=== PATIENT | female | born 1995 | race Two or more races ===

== ENCOUNTER 2021-07-13 18:38 | Emergency (ER) | payer MEDICAID ==
[~2021-07-13] VITALS: Ht 154.9 cm; Wt 63.5 kg
[~2021-07-13 18:38] MED LIST: PREN-96 PO
[2021-07-14] VITALS: BP 138/82
[2021-07-14] MEDS ORDERED: BACITRACIN TOP OINT 1 UD PKG TOP ONE (00:30)
[2021-07-14] MEDS ORDERED: NEOMYCIN-BACITRACIN-POLYM UNITDOSE PKG TOP OINT TOP ONE (00:30)
== END 2021-07-14 00:37 | disposition home or self-care (01) ==
LOC: ER 18:39
DX: S61.306A Unspecified open wound of right little finger with damage to nail, initial encounter (principal); L03.011 Cellulitis of right finger; Z79.899 Other long term (current) drug therapy; X58.XXXA Exposure to other specified factors, initial encounter; Y93.89 Activity, other specified; Y92.89 Other specified places as the place of occurrence of the external cause; Y99.8 Other external cause status
CPT/HCPCS: 11730

== ENCOUNTER 2021-09-30 15:53 | Emergency (ER) | payer MEDICAID ==
[~2021-09-30] VITALS: Ht 154.9 cm; Wt 61.2 kg
[2021-09-30] MEDS ORDERED: ACETAMINOPHEN 325 MG TAB PO ONE ×2 (16:07→16:15)
[2021-09-30 16:42] VITALS: BP 120/76
[2021-09-30] MEDS ORDERED: cefTRIAXone SOD 1,000 MG VL IM ONE (18:00)
[2021-09-30] MEDS ORDERED: methylPREDNISolone SOD SUCC 125 MG/2 ML VL IM ONE (18:00)
== END 2021-09-30 18:11 | disposition home or self-care (01) ==
LOC: ER 15:53
DX: J02.9 Acute pharyngitis, unspecified (principal); M79.10 Myalgia, unspecified site; R51.9 Headache, unspecified; R50.9 Fever, unspecified; Z79.899 Other long term (current) drug therapy; Z91.040 Latex allergy status; Z20.822 Contact with and (suspected) exposure to COVID-19
CPT/HCPCS: 36415; 71045; 87426; 96372; 99284; J0696; J2930

== ENCOUNTER → 2021-12-23 | Outpatient (CLI) | payer MEDICAID | END | disposition home or self-care (01) | LOC: LAB 09:21 | PROVIDERS: ATTEND Obstetrics & Gynecology | DX: Z34.80 Encounter for supervision of other normal pregnancy, unspecified trimester (principal) | CPT/HCPCS: 36415; 84144; 84702 ==

== ENCOUNTER 2021-12-25 08:28 | Day surgery (SDC) | payer MEDICAID ==
[~2021-12-25] VITALS: Ht 154.9 cm; Wt 69.9 kg
[2021-12-25 09:08] LABS: Basophils # (auto) 0 10 ^3/uL (0-0.2); Eosinophils # (auto) 0.1 10 ^3/uL (0-0.8); Eosinophils % (auto) 1.5 % (0.0-7.0); Lymphocytes # (auto) 2.2 10 ^3/uL (0.4-5.4); Monocytes # (auto) 0.5 10 ^3/uL (0-1.3); Neutrophils # (auto) 2.8 10 ^3/uL (1.6-8.6); Nucleated Red Blood Cells % 0.1 %
[2021-12-25 09:10] LABS: Basophils % (auto) 0.4 % (0.0-2.0); Hematocrit 38.8 % (36.0-46.0); Hemoglobin 12.6 g/dL (12.2-16.2); Lymphocytes % (auto) 39.5 % (10.0-50.0); Mean Corpuscular Hemoglobin 25.8 pg (28.0-32.0); Mean Corpuscular Hgb Conc. 32.5 g/dL (32.0-36.0); Mean Corpuscular Volume 79.6 fL (80.0-100.0); Neutrophils % (auto) 49.6 % (37.0-80.0); Red Blood Cells 4.88 10^6/uL (4.0-5.20); Red Cell Distribution Width 14.9 % (11.8-14.3); White Blood Cell 5.6 10^3/uL (4.4-10.8)
[2021-12-25 09:16] LABS: BUN/Creatinine Ratio 8.2; Calcium 8.9 mg/dL (8.5-10.1); Potassium 3.8 mmol/L (3.5-5.1)
[2021-12-25 09:22] LABS: INR 1.02 (0.9-1.15); Partial Thromboplastin Time 26.5 sec (23.6-33.0)
[2021-12-25 10:25] LABS: Urine Blood 3+ /uL (Negative); Urine Mucus FEW (None Seen); Urine Specific Gravity 1.024 (1.001-1.035); Urine WBC 60 /hpf (0 - 5)
[2021-12-25 10:27] LABS: Urine Bacteria FEW /hpf (None Seen)
[2021-12-25] MEDS ORDERED: SODIUM CHLORIDE 0.9% 1,000 ML IV ONE (11:00)
[2021-12-25] MEDS ORDERED: cefTRIAXone 1GM/50ML D5W 50 ML IV ONE ×2 (11:29→11:30)
[2021-12-25] MEDS ORDERED: fentaNYL CITRATE 100 MCG/2 ML VL ONE (12:12)
[2021-12-25] MEDS ORDERED: MEPERIDINE HCL (25 MG/ML) 1ML VIAL ONE (12:12)
[2021-12-25] MEDS ORDERED: MIDAZOLAM HCL 2MG/2ML 2ml VIAL (1mg/ml) ONE (12:12)
[2021-12-25] MEDS ORDERED: PROPOFOL 10 MG/ML 20 ML IV ONE (12:27)
[2021-12-25] MEDS ORDERED: DexAMETHasone SOD PHOS 10MG/1ML VIAL INJ ONE (12:27)
[2021-12-25] MEDS ORDERED: ONDA-144 PO (13:08)
[2021-12-25] MEDS ORDERED: IBUP800T27 PO (13:08)
[2021-12-25] MEDS ORDERED: RHO (D) IMMUNE GLOBULIN 300 MCG INJ IM PRN (13:15)
[2021-12-25] MEDS ORDERED: HYDROmorphone HCL 2 MG/ML VL IV PRN (13:30)
[2021-12-25] MEDS ORDERED: ONDANSETRON HCL 4 MG/2 ML VIAL IV PRN (13:30)
[2021-12-25] MEDS ORDERED: MORPHINE SULFATE 4 MG/ML SYR/VIAL IV PRN (13:30)
[2021-12-25] MEDS ORDERED: LABETALOL HCL 5 MG/ML 4ML SYRINGE IV PRN (13:30)
[2021-12-25] MEDS ORDERED: MIDAZOLAM HCL 2MG/2ML 2ml VIAL (1mg/ml) IV PRN (13:30)
[2021-12-25] MEDS ORDERED: ePHEDrine SULFATE 50 MG/ML AMP IV PRN (13:30)
[2021-12-25 14:45] VITALS: BP 105/63
== END 2021-12-25 15:19 | disposition home or self-care (01) ==
LOC: ER 08:28 → SUR 12:16 → OR 1 12:16 → SUR 15:19
PROVIDERS: ATTEND Obstetrics & Gynecology
DX: O03.4 Incomplete spontaneous abortion without complication (principal); O01.9 Hydatidiform mole, unspecified; Z20.822 Contact with and (suspected) exposure to COVID-19
CPT/HCPCS: 36415; 59812; 76801; 76817; 80048; 81001; 84702; 85025; 85610; 85730; 86850; 86900; 86901; 87426; J0696; J1100; J2175; J2250; J2704; J3010

== ENCOUNTER 2022-01-04 23:21 | Emergency (ER) | payer MEDICAID ==
[~2022-01-04] VITALS: Ht 154.9 cm; Wt 69.9 kg
[~2022-01-04 23:21] MED LIST changes: +IBUP800T27 PO; +ONDA-144 PO
[2022-01-04 23:22] VITALS: BP 192/109
[2022-01-05] MEDS ORDERED: SULF800T7 PO (11:11)
[2022-01-05] MEDS ORDERED: IBUP800T27 PO (11:11)
[2022-01-05] MEDS ORDERED: CYCL-837 PO (11:11)
== END 2022-01-05 01:22 | disposition left against medical advice (07) ==
LOC: ER 23:21
DX: M54.2 Cervicalgia (principal); M54.9 Dorsalgia, unspecified; Z53.21 Procedure and treatment not carried out due to patient leaving prior to being seen by health care provider

== ENCOUNTER 2022-01-05 09:09 | Emergency (ER) | payer MEDICAID ==
[~2022-01-05] VITALS: Ht 154.9 cm; Wt 69.9 kg
[2022-01-05 09:33] VITALS: BP 117/79
[2022-01-05] MEDS ORDERED: HYDROcodone-ACET 5/325MG TAB PO ONE (10:00)
[2022-01-05] MEDS ORDERED: ONDANSETRON ODT 4 MG TAB PO ONE (10:00)
[2022-01-05] MEDS ORDERED: CYCL-837 PO (11:11)
[2022-01-05] MEDS ORDERED: IBUP800T27 PO (11:11)
[2022-01-05] MEDS ORDERED: SULF800T7 PO (11:11)
== END 2022-01-05 11:37 | disposition home or self-care (01) ==
LOC: ER 09:09
DX: S39.012A Strain of muscle, fascia and tendon of lower back, initial encounter (principal); S16.1XXA Strain of muscle, fascia and tendon at neck level, initial encounter; N39.0 Urinary tract infection, site not specified; Z79.1 Long term (current) use of non-steroidal anti-inflammatories (NSAID); Z79.899 Other long term (current) drug therapy; Z91.040 Latex allergy status; X50.1XXA Overexertion from prolonged static or awkward postures, initial encounter; Y93.89 Activity, other specified; Y92.89 Other specified places as the place of occurrence of the external cause; Y99.8 Other external cause status
CPT/HCPCS: 72100; 72125; 99284; Q0162

== ENCOUNTER 2023-01-14 17:46 | Emergency (ER) | payer MEDICAID ==
[~2023-01-14] VITALS: Ht 154.9 cm; Wt 70.4 kg
[~2023-01-14 17:46] MED LIST changes: +CYCL-837 PO; +SULF800T7 PO
[2023-01-14 19:03] LABS: Basophils # (auto) 0 10 ^3/uL (0-0.2); Basophils % (auto) 0.4 % (0.0-2.0); Eosinophils # (auto) 0.1 10 ^3/uL (0-0.8); Eosinophils % (auto) 1.2 % (0.0-7.0); Hematocrit 34.1 % (36.0-46.0); Hemoglobin 10.8 g/dL (12.2-16.2); Lymphocytes # (auto) 2.7 10 ^3/uL (0.4-5.4); Lymphocytes % (auto) 34.8 % (10.0-50.0); Mean Corpuscular Hemoglobin 22.1 pg (28.0-32.0); Mean Corpuscular Hgb Conc. 31.7 g/dL (32.0-36.0); Mean Corpuscular Volume 69.6 fL (80.0-100.0); Monocytes # (auto) 0.6 10 ^3/uL (0-1.3); Monocytes % (auto) 7.7 % (0.0-12.0); Neutrophils # (auto) 4.3 10 ^3/uL (1.6-8.6); Neutrophils % (auto) 55.9 % (37.0-80.0); Nucleated Red Blood Cells % 0.1 %; Red Cell Distribution Width 16.9 % (11.8-14.3); White Blood Cell 7.8 10^3/uL (4.4-10.8)
[2023-01-14 19:05] LABS: Urine Bacteria FEW /hpf (None Seen); Urine Blood Negative /uL (Negative); Urine Specific Gravity 1.002 (1.001-1.035); Urine WBC 5 /hpf (0 - 5)
[2023-01-14 19:19] LABS: Albumin 4.1 g/dL (3.4-5.0); Potassium 3.7 mmol/L (3.5-5.1)
[2023-01-14 19:23] LABS: BUN/Creatinine Ratio 9.9; Bilirubin, Total 0.3 mg/dL (0.2-1.0); Total Protein 8.3 g/dL (6.4-8.2)
[2023-01-14 20:03] VITALS: BP 113/60
[2023-01-14] MEDS ORDERED: NITR-87 PO (20:19)
== END 2023-01-14 21:08 | disposition home or self-care (01) ==
LOC: ER 17:46
DX: R51.9 Headache, unspecified (principal); N39.0 Urinary tract infection, site not specified; Z91.040 Latex allergy status; Z79.899 Other long term (current) drug therapy
CPT/HCPCS: 36415; 80053; 81001; 81025; 85025

== ENCOUNTER 2023-10-07 11:27 | Emergency (ER) | payer MEDICAID ==
[~2023-10-07] VITALS: Ht 154.9 cm; Wt 70.0 kg
[~2023-10-07 11:27] MED LIST changes: +IBUP-1456 PO; -IBUP800T27 PO; +NITR-87 PO; +SULF800T23 PO; -SULF800T7 PO
[2023-10-07 12:00] VITALS: BP 109/67; PULSE 73; RESP 16; TEMP 97.8; O2SAT 99
== END 2023-10-07 13:46 | disposition home or self-care (01) ==
LOC: ER 11:27
DX: S40.021A Contusion of right upper arm, initial encounter (principal); Z87.440 Personal history of urinary (tract) infections; Z91.040 Latex allergy status; W18.09XA Striking against other object with subsequent fall, initial encounter; Y93.89 Activity, other specified; Y92.89 Other specified places as the place of occurrence of the external cause; Y99.8 Other external cause status
CPT/HCPCS: 73060

== ENCOUNTER 2024-12-09 17:05 | Emergency (ER) | payer MEDICAID ==
[~2024-12-09] VITALS: Ht 154.9 cm; Wt 68.9 kg
[2024-12-09 17:41] VITALS: PULSE 68; RESP 18; O2SAT 99
[2024-12-09] MEDS: KETOROLAC TROMETH 60MG/2ML VIAL IM ONE (17:43)
[2024-12-09] MEDS: HYDROcodone-ACET 5/325MG TAB PO ONE (17:43)
--- NOTE | 2024-12-09 18:04 | ED.PDOC ---
[place]. trauma (HPI) HPI Comments 29 y.o female presents to the ED for a chief complaint of back pain s/p falling backwards on snow. Patient reports history of 2 herniated disks, states tenderness she feels now is new after falling. Patient denies any LOC, head injury, neck, head, pain, nausea, vomiting. Patient is able to ambulate. Chief Complaint: Fall Injury Time Seen by MD: 17:14 Primary Care Provider: anneliese Lopez notes: Nurses Notes, Medications, Allergies Allergies: Coded Allergies: Latex (Verified Allergy, Unknown, 08/17/16) Home Meds Active Scripts Nitrofurantoin Monohydrate Mac (Macrobid) 100 Mg Cap, 100 MG PO BID for 5 Days, #10 CAP 0 Refills Prov:MALIK HOLDER 01/14/23 Sulfamethoxazole W/Trimethopri (Trimethoprim/Sulfamethoxa) 1 Tab Tab, 1 TAB PO BID for 7 Days, #14 TAB 0 Refills Prov:SHARRI LAZCANO 01/05/22 Ibuprofen (Ibuprofen) 800 Mg Tab, 1 TAB PO TID PRN, #30 TAB 0 Refills Prov:SHARRI LAZCANO 01/05/22 Cyclobenzaprine Hcl (Cyclobenzaprine Hcl) 5 Mg Tab, 1 TAB PO QPM PRN, #15 TAB 0 Refills Prov:SHARRI LAZCANO 01/05/22 Ondansetron (Zofran) 4 Mg Tab, 4 MG PO Q4HPRN PRN, #30 TAB Prov:WILD KRAMER 12/25/21 Ibuprofen (Ibuprofen) 800 Mg Tab, 800 MG PO TID PRN for 15 Days, #40 TAB Prov:WILD KRAMER 12/25/21 Reported Medications Vit W/ Ferrous Fumara ( One Daily) Daily Tab, 1 TAB PO DAILY, #90 TAB 3 Refills 01/22/17 Information Source: Patient Mode of Arrival: Ambulatory Severity: Moderate Timing: Hours Duration: Since onset Prehospital treatment: None Location: Back Location of laceration: None Mechanism: Fall Associated signs and symtoms: Other Past Medical History PAST MEDICAL HISTORY: UTI'S Past Medical History (Other): herinated disk x2 Surgical History: Denies all surgeries PAYROLL ASSISTANT History: No Pertinent PAYROLL ASSISTANT History Family History Family History: Reviewed,noncontributory to illness, Family hx of HTN Social History Smoker: Non-Smoker Alcohol: Denies ETOH Use Drugs: Denies Drug Use Lives In: Home Constitutional: denies: chills, diaphoresis, fatigue, fever, malaise, sweats, weakness, others EENTM: denies: blurred vision, double vision, ear bleeding, ear discharge, ear drainage, ear pain, ear ringing, eye pain, eye redness, hearing loss, mouth pain, mouth swelling, nasal discharge, nose bleeding, nose congestion, nose pain, photophobia, tearing, throat pain, throat swelling, voice changes, others Respiratory: denies: cough, hemoptysis, orthopnea, SOB at rest, shortness of breath, SOB with excertion, stridor, wheezing, others Cardiovascular: denies: chest pain, dizzy spells, diaphoresis, Dyspnea on exertion, edema, irregular heart beat, left arm pain, lightheadedness, palpitations, PND, syncope, others Gastrointestinal: denies: abdomen distended, abdominal pain, blood streaked bowels, constipated, diarrhea, dysphagia, difficulty swallowing, hematemesis, melena, nausea, poor appetite, poor fluid intake, rectal bleeding, rectal pain, vomiting, others Genitourinary: denies: abnormal vagina bleeding, burning, dyspareunia, dysuria, flank pain, frequency, hematuria, incontinence, pain, , vagina discharge, urgency, others Neurological: denies: dizziness, fainting, headache, left sided numbness, left sided weakness, numbness, paresthesia, pre-existing deficit, right sided numbness, right sided weakness, seizure, speech problems, tingling, tremors, weakness, others Musculoskeletal: reports: back pain; denies: gout, joint pain, joint swelling, muscle pain, muscle stiffness, neck pain, others Integumetry: denies: bruises, change in color, change in hair/nails, dryness, laceration, lesions, lumps, rash, wounds, others Allergic/Immunocompromised: denies: Difficulty Healing, Frequent Infections, Hives, Itching, others Hematologic/Lymphatic: denies: anemia, blood clots, easy bleeding, easy bruising, swollen glands, others Endocrine: denies: excessive hunger, excessive sweating, excessive thirst, excessive urination, flushing, intolerance to cold, intolerance to heat, unexplained weight gain, unexplained weight loss, others Psychiatric: denies: anxiety, bipolar disorder, depression, hopeless, panic disorder, schizophrenia, sleepless, suicidal, others All Other Systems: Reviewed and Negative Physical Exam General Appearance: Moderate Distress ([id number] distress due to low back pain concerns.), Normal HEENT: Normal ENT Inspection, Pharynx Normal, TMs Normal Neck: Full Range of Motion, Non-Tender, Normal, Normal Inspection Respiratory: Chest Non-Tender, Lungs Clear, No Accessory Muscle Use, No Respiratory Distress, Normal Breath Sounds Cardiovascular: No Edema, No JVD, No Murmur, No Gallop, Normal Peripheral Pulses, Regular Rate/Rhythm Breast Exam: Deferred Gastrointestinal: No Organomegaly, Non Tender, No Pulsatile Mass, Normal Bowel Sounds, Soft Genitalia: Deferred Pelvic: Deferred Rectal: Deferred Extremities: No calf tenderness, Normal capillary refill, Normal inspection, Normal range of motion, Non-tender, No pedal edema Musculoskeletal : Location: Bilateral Extremity Location: Back (Diffuse bilateral lumbar tenderness to palpation. No step-offs noted. No crepitus appreciated. No edema or ecchymosis. Patient denies any saddle paresthesia. Bilateral distal neurovascularly intact.) Apperance: Tenderness Neurologic: Alert, workshop manager II-XII nml as Tested, No Motor Deficits, Normal Affect, Normal Mood, No Sensory Deficits Cerebellar Function: Normal Reflexes: Normal Skin: Dry, Normal Color, Warm Lymphatic: No Adenopathy Was a procedure done? Was a procedure done?: No Differential Diagnosis Multiple Trauma: Fractures, Contusion X-Ray, Labs, Meds, VS Vital Signs Date Time Temp Pulse Resp B/P (MAP) Pulse Ox O2 Delivery O2 Flow Rate FiO2 12/09/24 17:41 68 18 99 Room Air* 0 21 12/09/24 17:40 97.5 99 18 109/44 (65) 99 97.5 12/09/24 17:13 98.0 83 20 109/55 (73) 98 Current Medications Medications (Trade) Dose Ordered Sig/Lisa Route Start Time Stop Time Status Last Admin Ketorolac Tromethamine (Toradol Injection) 30 mg ONCE ONCE IM 12/09/24 17:30 12/09/24 17:31 DC 12/09/24 17:43 Acetaminophen/ Hydrocodone Bitart ([place] 5/325MG Tab) 1 tab ONCE ONCE PO 12/09/24 17:30 12/09/24 17:31 DC 12/09/24 17:43 X-Ray, Labs, Meds, VS Comment All studies performed the ED were evaluated by me personally. Imaging studies were unremarkable for any acute fractures. Additionally, I will advise the patient that there was no sign of degenerative disc disease or disc concerns. Patient sustained a low back contusion. Time of 1ST Reevaluation: 18:43 Reevaluation 1ST: Improved Consultation: PCP Patient Education/Counseling: Diagnosis, Treatment, Prognosis Family Education/Counseling: Diagnosis, Treatment, No Family Present Departure 1 Departure Time of Disposition: 18:44 Impression: Primary Impression: Contusion of lower back Disposition: 01 HOME / SELF CARE / HOMELESS Condition: Stable Additional Instructions: Tylenol and or Motrin as needed for symptomatic pain relief as well as ice therapy. Additionally, imaging studies were unremarkable for any degenerative disc disease or disc related concerns. e-Prescriptions Hydrocodone-Acetaminophen (Hydrocodone Bitartrate/AC 5-325 mg) 1 Tab Tab 1 TAB PO Q6HP PRN, #15 TAB Prov: AGGIE COFFEY PAC 12/09/24 Ibuprofen Micronized (Ibuprofen) 800 Mg Tab 800 MG PO Q8HP PRN, #20 TAB Prov: AGGIE COFFEY PAC 12/09/24 Discharged With: Self, Friend Critical Care Note Critical Care Time?: No Stability Stability form required: No I personally scribed for AGGIE COFFEY PAC ([email or web address]) on 12/09/24 at 18:04. Electronically submitted by Vikki Alcocer ([facility]). AGGIE COFFEY PAC Dec 09, 2024 18:04
--- NOTE | 2024-12-09 18:30 | DVH ---
CLINICAL INDICATION: Fall/trauma TECHNIQUE: 3 radiographic views of the lumbar spine were obtained. Comparison: LUMBAR SPINE LTD on DOS: 01/05/22 FINDINGS/IMPRESSION: There is 5 [id number] lumbar-type vertebrae. Normal alignment of the lumbar spine. Vertebral b jacy heights are maintained. No evidence of acute traumatic fractures or spondylolisthesis. Moderate to large amount of fecal material within the colon.
[2024-12-09] MEDS ORDERED: IBUP-1455 PO (18:47)
[2024-12-09] MEDS ORDERED: HYDR-4902 PO (18:47)
[2024-12-09 19:33] VITALS: BP 100/62; PULSE 70; RESP 18; TEMP 97.8; O2SAT 97
== END 2024-12-09 19:34 | disposition home or self-care (01) ==
LOC: ER 17:05
DX: S30.0XXA Contusion of lower back and pelvis, initial encounter (principal); Z91.040 Latex allergy status; Z87.440 Personal history of urinary (tract) infections; V00.321A Fall from snow-skis, initial encounter; Y93.89 Activity, other specified; Y92.89 Other specified places as the place of occurrence of the external cause; Y99.8 Other external cause status
CPT/HCPCS: 72100; 96372; 99283; J1885

== ENCOUNTER 2025-05-06 08:38 | Outpatient (CLI) | payer MEDICAID ==
[~2025-05-06 08:38] MED LIST changes: +HYDR-4902 PO; +IBUP-1455 PO
== END 2025-05-06 17:00 | disposition home or self-care (01) ==
LOC: LAB 08:38
PROVIDERS: ATTEND Obstetrics & Gynecology
DX: Z34.91 Encounter for supervision of normal pregnancy, unspecified, first trimester (principal); Z3A.08 8 weeks gestation of pregnancy
CPT/HCPCS: 36415; 84144; 84702

== ENCOUNTER 2025-05-08 09:27 | Outpatient (CLI) | payer MEDICAID | END 2025-05-08 17:00 | disposition home or self-care (01) | LOC: LAB 09:27 | PROVIDERS: ATTEND Obstetrics & Gynecology | DX: Z34.80 Encounter for supervision of other normal pregnancy, unspecified trimester (principal); Z3A.00 Weeks of gestation of pregnancy not specified | CPT/HCPCS: 36415; 84144; 84702 ==

== ENCOUNTER → 2025-05-30 | Outpatient (CLI) | payer MEDICAID ==
[2025-05-30 10:29] LABS: Hematocrit 36.8 % (36.0-46.0); Hemoglobin 11.9 g/dL (12.2-16.2); Mean Corpuscular Hemoglobin 23.8 pg (28.0-32.0); Mean Corpuscular Volume 73.3 fL (80.0-100.0); Nucleated Red Blood Cells % 0.0 %
[2025-05-30 11:58] LABS: Amphetamine Screen, Urine Neg (NEGATIVE)
[2025-05-30 12:20] LABS: Barbiturate Scree,Urine Neg (NEGATIVE); Benzodiazephine Screen, Urine Neg (NEGATIVE); Cannabinoid Screen, Urine Neg (NEGATIVE); Cocaine Screen, Urine Neg (NEGATIVE); Opiate Scree,Urine Neg (NEGATIVE); Phencyclidine Screen, Urine Neg (NEGATIVE)
[2025-06-01 09:07] LABS: Chlamydia Trachomatis, NAA Negative (Negative); Neisseria gonorrhoeae, NAA Negative (Negative)
== END | disposition home or self-care (01) ==
LOC: LAB 09:47
PROVIDERS: ATTEND Obstetrics & Gynecology
DX: Z34.80 Encounter for supervision of other normal pregnancy, unspecified trimester (principal); Z72.51 High risk heterosexual behavior; Z3A.00 Weeks of gestation of pregnancy not specified
CPT/HCPCS: 36415; 80307; 83036; 84144; 84702; 85025; 86703; 86762; 86780; 86850; 86900; 86901; 87086; 87340

== ENCOUNTER 2025-08-17 20:53 | Emergency (ER) | payer MEDICAID ==
[~2025-08-17] VITALS: Ht 152.4 cm; Wt 70.7 kg
--- NOTE | 2025-08-17 21:55 | DVH ---
LIMITED OB ULTRASOUND > 14 WKS: HISTORY: Vaginal bleed TECHNIQUE: Multiple real-time grayscale images of the gravid uterus with duplex doppler color flow an d M-mode spectral analysis. COMPARISON: OB TRANS VAGINAL US on DOS: 12/25/21 FINDINGS: IUP single live fetus at 20 weeks 2 days based on composite averages of the BPD, head circumference, abdominal circumference and femur length Estimated weight 360.47 grams heart rate 157 beats per minute ARIEL 4.3 cm Cervix 3.1 cm Cephalic Presentation Anterior placenta without previa or abruption. IMPRESSION: IUP single live fetus at 20 weeks 2 days AUA corresponding to an DIYA of 09/07/2023. No placenta previa or placental abruption.
--- NOTE | 2025-08-17 22:01 | ED.PDOC ---
STUDIO MANAGER HPI Comments Patient is a pleasant 30-year-old female who arrives the ED today for evaluation of spotting event earlier today. Patient states she is 19 weeks and had a mild spotting event earlier. Patient states reduction in movement. Patient denies any fever nausea or vomiting. No trauma. Vital signs were stable on arrival. Chief Complaint: Vaginal Bleed Time Seen by MD: 20:57 Reviewed Notes: Nurses Notes Allergies: Coded Allergies: Latex (Verified Allergy, Unknown, 08/17/16) Home Meds Active Scripts Hydrocodone-Acetaminophen (Hydrocodone Bitartrate/AC 5-325 mg) 1 Tab Tab, 1 TAB PO Q6HP PRN, #15 TAB Prov:AGGIE COFFEY PAC 12/09/24 Ibuprofen Micronized (Ibuprofen) 800 Mg Tab, 800 MG PO Q8HP PRN, #20 TAB Prov:AGGIE COFFEY PAC 12/09/24 Nitrofurantoin Monohydrate Mac (Macrobid) 100 Mg Cap, 100 MG PO BID for 5 Days, #10 CAP 0 Refills Prov:MALIK HOLDER 01/14/23 Sulfamethoxazole W/Trimethopri (Trimethoprim/Sulfamethoxa) 1 Tab Tab, 1 TAB PO BID for 7 Days, #14 TAB 0 Refills Prov:SHARRI LAZCANO 01/05/22 Ibuprofen (Ibuprofen) 800 Mg Tab, 1 TAB PO TID PRN, #30 TAB 0 Refills Prov:SHARRI LAZCANO 01/05/22 Cyclobenzaprine Hcl (Cyclobenzaprine Hcl) 5 Mg Tab, 1 TAB PO QPM PRN, #15 TAB 0 Refills Prov:SHARRI LAZCANO 01/05/22 Ondansetron (Zofran) 4 Mg Tab, 4 MG PO Q4HPRN PRN, #30 TAB Prov:WILD KRAMER 12/25/21 Ibuprofen (Ibuprofen) 800 Mg Tab, 800 MG PO TID PRN for 15 Days, #40 TAB Prov:WILD KRAMER 12/25/21 Reported Medications Vit W/ Ferrous Fumara ( One Daily) Daily Tab, 1 TAB PO DAILY, #90 TAB 3 Refills 01/22/17 Information Source: Patient Mode of Arrival: Ambulatory Timing: Hours Prehospital treatment: None Severity: Mild Bleeding Quality: Bright Red Onset Of Mass/Bleeding: Spontaneous Past Medical History PAST MEDICAL HISTORY: UTI'S Past Medical History (Other): Patient states she is 19 weeks . Surgical History: Denies all surgeries GOLF PLAYER ASSISTANT History: No Pertinent GOLF PLAYER ASSISTANT History Family History Family History: Reviewed,noncontributory to illness, Family hx of HTN Social History Smoker: Non-Smoker Alcohol: Denies ETOH Use Drugs: Denies Drug Use Lives In: Home Constitutional: denies: chills, diaphoresis, fatigue, fever, malaise, sweats, weakness, others EENTM: denies: blurred vision, double vision, ear bleeding, ear discharge, ear drainage, ear pain, ear ringing, eye pain, eye redness, hearing loss, mouth pain, mouth swelling, nasal discharge, nose bleeding, nose congestion, nose pain, photophobia, tearing, throat pain, throat swelling, voice changes, others Respiratory: denies: cough, hemoptysis, orthopnea, SOB at rest, shortness of breath, SOB with excertion, stridor, wheezing, others Cardiovascular: denies: chest pain, dizzy spells, diaphoresis, Dyspnea on exertion, edema, irregular heart beat, left arm pain, lightheadedness, palpitations, PND, syncope, others Gastrointestinal: denies: abdomen distended, abdominal pain, blood streaked bowels, constipated, diarrhea, dysphagia, difficulty swallowing, hematemesis, melena, nausea, poor appetite, poor fluid intake, rectal bleeding, rectal pain, vomiting, others Genitourinary: reports: abnormal vagina bleeding; denies: burning, dyspareunia, dysuria, flank pain, frequency, hematuria, incontinence, pain, , vagina discharge, urgency, others Neurological: denies: dizziness, fainting, headache, left sided numbness, left sided weakness, numbness, paresthesia, pre-existing deficit, right sided numbness, right sided weakness, seizure, speech problems, tingling, tremors, weakness, others Musculoskeletal: denies: back pain, gout, joint pain, joint swelling, muscle pain, muscle stiffness, neck pain, others Integumetry: denies: bruises, change in color, change in hair/nails, dryness, laceration, lesions, lumps, rash, wounds, others Allergic/Immunocompromised: denies: Difficulty Healing, Frequent Infections, Hives, Itching, others Hematologic/Lymphatic: denies: anemia, blood clots, easy bleeding, easy bruising, swollen glands, others Endocrine: denies: excessive hunger, excessive sweating, excessive thirst, excessive urination, flushing, intolerance to cold, intolerance to heat, unexplained weight gain, unexplained weight loss, others Psychiatric: denies: anxiety, bipolar disorder, depression, hopeless, panic disorder, schizophrenia, sleepless, suicidal, others Physical Exam General Appearance: Mild Distress (Moderate distress due to anxiety related to her spotting event.), Normal HEENT: Normal ENT Inspection, Pharynx Normal, TMs Normal Neck: Full Range of Motion, Non-Tender, Normal, Normal Inspection Respiratory: Chest Non-Tender, Lungs Clear, No Accessory Muscle Use, No Respiratory Distress, Normal Breath Sounds Cardiovascular: No Edema, No JVD, No Murmur, No Gallop, Normal Peripheral Pulses, Regular Rate/Rhythm Breast Exam: Deferred Gastrointestinal: Other (Abdominal exam was relatively unremarkable. appreciated. movement appreciated in left lower quadrant.) Genitalia: Deferred Pelvic: Deferred Rectal: Deferred Extremities: No calf tenderness, Normal capillary refill, Normal inspection, Normal range of motion, Non-tender, No pedal edema Neurologic: Alert Cerebellar Function: NOT DONE Reflexes: NOT DONE Skin: Dry, Normal Color, Warm Lymphatic: No Adenopathy Was a procedure done? Was a procedure done?: No Differential Diagnosis (GOLF PLAYER ASSISTANT) Vaginal Bleeding: - Missed, - Threatened, Abruptio Placentae X-Ray, Labs, Meds, VS Vital Signs Date Time Temp Pulse Resp B/P (MAP) Pulse Ox O2 Delivery O2 Flow Rate FiO2 08/17/25 20:59 98.4 89 20 116/69 100 98.4 X-Ray, Labs, Meds, VS Comment All studies performed the ED were evaluated by me personally. OB ultrasound confirmed a 20 week two day viable . Patient has been advised to co ntinue follow up with OB as scheduled. Time of 1ST Reevaluation: 22:00 Reevaluation 1ST: Improved Consultation: PCP, machine pecan gatherer Patient Education/Counseling: Diagnosis, Treatment Family Education/Counseling: Diagnosis, Treatment Departure 1 Departure Time of Disposition: 22:00 Impression: Primary Impression: Vaginal bleeding before 22 weeks gestation Disposition: HOME / SELF CARE / HOMELESS Condition: Stable Additional Instructions: Advised follow up with OB in the next few days for re-evaluation. No placenta previa appreciated on OB ultrasound. Discharged With: Self, Friend Critical Care Note Critical Care Time?: No Stability Stability form required: No Heart Score Heart Score: Heart Score Response (Comments) Value History N/A 0 EKG N/A 0 Age N/A 0 Risk Factors N/A 0 Troponin N/A 0 Total 0 AGGIE COFFEY PAC Aug 17, 2025 22:01
[2025-08-17 22:21] VITALS: BP 107/85; PULSE 85; RESP 16; TEMP 98.6; O2SAT 100
== END 2025-08-17 22:30 | disposition home or self-care (01) ==
LOC: ER 20:53
DX: O20.9 Hemorrhage in early pregnancy, unspecified (principal); Z3A.19 19 weeks gestation of pregnancy; Z91.040 Latex allergy status; Z87.440 Personal history of urinary (tract) infections
CPT/HCPCS: 76805

== ENCOUNTER 2025-10-17 09:30 | Observation (INO) | payer MEDICAID ==
--- NOTE | 2025-10-17 11:51 | DVH ---
BIOPHYSICAL PROFILE HISTORY: ARIEL Check Comparison Study: US OB ULTRASOUND COMP GTR 14 WKS on DOS: 08/17/25, OB TRANS VAGINAL US on DOS: 12/25/21 TECHNIQUE: Multiple real-time grayscale sonographic images through the gravid uterus of the fetus with duplex Doppler color flow and M-mode spectral analysis Findings/impression: Cephalic presentation. Grade 1, Posterior placenta heart rate 126 beats per minute Cervix is closed and measures 3.9 cm. ARIEL 14.5 cm.
--- NOTE | 2025-10-17 15:01 | DVHDS2 ---
Physician Discharge Progress N Final Diagnosis: SROM RULED OUT 28WKS Operations or Procedures: Operations or Procedures NST REACTIVE REVIWED,SONO Condition on Discharge: Good Disposition: Home Discharge Instructions: Diet: Regular Activity: No Restrictions, As Tolerated Medications: NA Follow Up Care: Specialist: 3D Discharge Statement: "Patient was advised to return to the ER or call 911 if any headaches, dizziness, shortness of breath, chest pain, abdominal pain, bleeding, fevers, or worsening of medical condition. Patient was counseled about treatment plan, medications, possible side effects, patientverbalized understanding. All questions were answered to the best of my ability. This discharge took greater then 30 minutes in planning, reviewing documentation, counseling the patient, and discussing with other team members." Visit Coding OBGYN Date of Service: Oct 17, 2025 Billing Provider: WILD KRAMER DO SLURRY WORKER Common Visit Codes: 55755-NJQSBOF OBS CARE (HIGH) SLURRY WORKER Procedure Codes: 55351-34- NON-STRESS TEST WILD KRAMER DO Oct 17, 2025 15:01
== END 2025-10-17 12:06 | disposition home or self-care (01) ==
LOC: UNDOADMOB 09:30 → LDRP 09:30
PROVIDERS: ADMIT Obstetrics & Gynecology; ATTEND Obstetrics & Gynecology
DX: O42.913 Preterm premature rupture of membranes, unspecified as to length of time between rupture and onset of labor, third trimester (principal); Z3A.28 28 weeks gestation of pregnancy; Z79.899 Other long term (current) drug therapy; Z98.890 Other specified postprocedural states
CPT/HCPCS: 59025; 76815; 81002; 84112; 94760; G0378